=== PATIENT | female | born 1965 | race Hispanic/Latino ===

== ENCOUNTER 2018-06-22 06:32 | Observation (INO) | payer OTHER ==
[2018-06-22] MEDS ORDERED: Famotidine/PF 20 mg/2ml Vial ONE (07:41)
[2018-06-22] MEDS ORDERED: Ondansetron PF 4 MG/2 ML Vial ONE ×2 (07:41→21:18)
[2018-06-22] MEDS ORDERED: Scopolamine 1.5 mg/72 hour Patch ONE (07:41)
[2018-06-22] MEDS ORDERED: Levofloxacin 500 mg/D5W 100 ml Premix Bag ONE (07:55)
[2018-06-22] MEDS ORDERED: Clindamycin/D5W 900 mg/50 ml Premix Bag ONE (07:56)
[2018-06-22 08:00] LABS: #Basophils 0.1 thou/uL (0.0-0.2); #Eosinphils 0.1 thou/uL (0.0-0.7); #Lymphocytes 3.8 thou/uL (1.20-3.40); #Monocytes 0.7 thou/uL (0.11-0.59); #Neutrophils 5.4 thou/uL (1.40-6.50); %Basophils 0.7 % (0.0-1.0); %Eosinophils 1.5 % (0.0-10.0); %Lymphocytes 38.1 % (21.0-51.0); %Monocytes 6.5 % (0.0-10.0); %Neutrophils 53.3 % (42.0-75.0); Hemoglobin 13.9 g/dL (12.0-16.0); Mean Corpuscular HGB CONC 32.4 g/dL (32.0-36.0); Mean Corpuscular Hemoglobin 28.9 pg (27.0-31.0); Mean Corpuscular Volume 89.2 fL (78.0-98.0); Mean Platelet Volume 7.1 fL (7.4-10.4); Platelet Count 270 thou/uL (130-400); Red Blood Cell (RBC) Count 4.81 mill/uL (4.20-5.40); White Blood Cell (WBC) Count 10.1 thou/uL (4.8-10.8)
[2018-06-22 08:11] LABS: Anion Gap 11 mmol/L (10-20); BUN (Urea Nitrogen) 9 mg/dL (9.8-20.1); Calc. Creatinine Clearance 126 mL/min (70-130); Calcium 9.6 mg/dL (7.8-10.44); Carbon Dioxide 28 mmol/L (22-29); Chloride 105 mmol/L (98-107); Estimated GFR-MDRD 86; Glucose 95 mg/dL (70-105); Sodium 140 mmol/L (136-145)
[2018-06-22] MEDS ORDERED: Fentanyl 100 MCG/2 ML VIAL ONE ×4 (08:28→11:35)
[2018-06-22] MEDS ORDERED: Sodium Chloride 0.9% 10 ML ONE (09:11)
--- NOTE | 2018-06-22 10:08 | OP ---
DATE OF PROCEDURE: 06/22/2018 MACHINE STITCHER: Devon. PROCEDURE PERFORMED: Right L5-S1 microdiskectomy. DESCRIPTION OF PROCEDURE: The patient was brought to the operating room and intubated. She was rolled in a prone position on gel-filled chest rolls. An incision was made exposing L5 and S1 on the right, and the level was confirmed by x-ray. We performed a right L5-S1 hemilaminectomy, removed the ligament, identified the right S1 nerve root and beneath that was a bulging disk fragment. This was partially calcified and ultimately removed in multiple fragments. A complete decompression of right S1 was achieved. The wound was then extensively irrigated and maximum hemostasis was secured. Vancomycin powder was applied and the wound was closed in anatomic layers. Job ID: [id number]
[2018-06-22] MEDS ORDERED: diphenhydrAMINE 25 MG CAP PO PRN (10:57)
[2018-06-22] MEDS ORDERED: Milk Of Magnesia 30 ML UDCUP PO PRN (10:57)
[2018-06-22] MEDS ORDERED: Morphine 4 MG/ML VIAL SLOW IVP PRN ×2 (10:57→11:04)
[2018-06-22] MEDS ORDERED: diphenhydrAMINE 50 MG/ML VIAL IVP PRN (10:57)
[2018-06-22] MEDS ORDERED: tiZANidine HCl 4 MG TAB PO PRN (10:57)
[2018-06-22] MEDS ORDERED: Promethazine HCl 12.5 MG SUPP PR PRN (10:57)
[2018-06-22] MEDS ORDERED: Mag-Al 1200 mg/1200 mg/30 ML UDCUP PO PRN (10:57)
[2018-06-22] MEDS ORDERED: traMADol HCl 50 MG TAB PO PRN ×2 (10:57)
[2018-06-22] MEDS ORDERED: Promethazine HCl 25 MG/ML VIAL IM PRN (10:57)
[2018-06-22] MEDS ORDERED: Promethazine 25 MG TAB PO PRN (10:57)
[2018-06-22] MEDS ORDERED: HYDROcodone/Acetaminophen 10/325 mg Tablet PO PRN (10:57)
[2018-06-22] MEDS ORDERED: Ondansetron PF 4 MG/2 ML Vial IM PRN (10:58)
[2018-06-22] MEDS ORDERED: Ondansetron HCl/PF 4 MG/2 ML Vial IVP PRN (11:04)
[2018-06-22] MEDS ORDERED: Promethazine HCl 25 MG/ML VIAL IM/IV PRN (11:04)
[2018-06-22] MEDS ORDERED: Morphine Sulfate 2 MG/ML SYRINGE SLOW IVP PRN (11:04)
[2018-06-22] MEDS ORDERED: Morphine 4 MG/ML VIAL ONE (13:50)
[2018-06-22] MEDS ORDERED: Cyclobenzaprine 10 MG TAB PO PRN (16:59)
[2018-06-22] MEDS: Sodium Chloride 0.9% 1,000 ML IV SCH (17:10)
[2018-06-22 17:28] VITALS: BMI 35.2
--- NOTE | 2018-06-22 17:57 | EKG ---
Test Reason : PREOP Blood Pressure : / mmHG Vent. Rate : 093 BPM Atrial Rate : 093 BPM P-R Int : 120 ms QRS Dur : 080 ms QT Int : 366 ms P-R-T Axes : 067 059 027 degrees QTc Int : 455 ms Normal sinus rhythm Normal ECG No previous ECGs available Confirmed by LICO PALOMINO ([id number]) on 06/22/2018 5:57:39 PM Referred By: EULALIO Confirmed By:LICO PALOMINO
[2018-06-22] MEDS: Clindamycin/D5W 900 MG in Premix Bag 1 BAG IVPB SCH (18:16)
[2018-06-22] MEDS: HYDROcodone/Acetaminophen 10/325 mg Tablet PO PRN (18:28)
[2018-06-22] MEDS: predniSONE 20 MG TAB PO SCH (20:01)
[2018-06-22] MEDS ORDERED: Hydrocortisone Sod Succ/PF 100 mg/2 ml Vial ONE (21:18)
[2018-06-22] MEDS ORDERED: Lidocaine 1% PF 5 ML VIAL ONE (21:18)
[2018-06-22] MEDS ORDERED: PHENYLEPHRINE-NS 100 MCG/ML 10 ML SYRINGE ONE (21:18)
[2018-06-22] MEDS ORDERED: Dexamethasone 20 MG/5 ML VIAL ONE (21:18)
[2018-06-22] MEDS ORDERED: Ketorolac Tromethamine 30 MG/ML VIAL ONE (21:18)
[2018-06-22] MEDS ORDERED: Metoclopramide HCl 10 MG/2 ML VIAL ONE (21:18)
[2018-06-22] MEDS ORDERED: PROPOFOL 200 MG/20 ML VIAL ONE (21:18)
[2018-06-22] MEDS ORDERED: Succinylcholine Chloride 20 MG/ML 10 ml SYRINGE FS ONE (21:18)
[2018-06-22] MEDS ORDERED: ePHEDrine/0.9% NaCl/PF SYRINGE 50 mg/10 ml ONE (21:18)
[2018-06-23] MEDS: Clindamycin/D5W 900 MG in Premix Bag 1 BAG IVPB SCH (00:03)
[2018-06-23] MEDS: Sodium Chloride 0.9% 1,000 ML IV SCH (02:02)
[2018-06-23 08:05] VITALS: BP 120/76; TEMP 97.9
[2018-06-23] MEDS: predniSONE 20 MG TAB PO SCH (08:35)
[2018-06-23] MEDS: HYDROcodone/Acetaminophen 10/325 mg Tablet PO PRN (08:37)
--- NOTE | 2018-06-23 09:56 | DIS ---
DATE OF ADMISSION: 06/22/2018 DATE OF DISCHARGE: 06/23/2018 HISTORY: Ms. Lai is a 52-year-old woman, who was admitted to [facility] on June 22, 2018, by Dr. Bartolome Priest. ADMISSION DIAGNOSIS: Status post lumbar diskectomy. DISCHARGE DIAGNOSIS: Status post lumbar diskectomy. HOSPITAL COURSE: Ms. Lai was admitted to the surgical floor in [place] following surgery for overnight observation. No consultations were ordered. She ultimately tolerated the procedure well and had minimal pain complaints. She mobilized well early on, and on the morning of June 23, was ready for discharge. She was subsequently discharged home with outpatient followup planned in 4 weeks. Job ID: [id number]
== END 2018-06-23 10:24 | disposition home or self-care (01) ==
LOC: SDC 06:32 → SURG A 16:47
PROVIDERS: ADMIT Neurological Surgery; ATTEND Neurological Surgery
PROC: 0SB20ZZ Excision of Lumbar Vertebral Disc, Open Approach (ICD-10-PCS; principal; 2018-06-22)
DX: M51.17 Intervertebral disc disorders with radiculopathy, lumbosacral region (principal); Z88.0 Allergy status to penicillin; Z88.5 Allergy status to narcotic agent
CPT/HCPCS: 36415; 76001; 80048; 85025; 93005; 93010; 96374; 96376; G0378; J1100; J1720; J1885; J1956; J2001; J2270; J2405; J2704; J2765; J3010; J3370; J3490; J7506; S0028

== ENCOUNTER 2018-08-17 07:48 | Outpatient (CLI) | payer OTHER ==
--- NOTE | 2018-08-17 09:09 | MRI ---
MRI LUMBAR SPINE WITHOUT CONTRAST: HISTORY: Lumbar radiculopathy. Right leg pain, increasing. COMPARISON: None. TECHNIQUE: MRI lumbar spine is performed without intravenous Gadolinium administration. Multisequential, multip lanar imaging is performed. FINDINGS: Appropriate T1 marrow signal intensity of the lumbar vertebrae. Lumbar spine vertebral body height i s maintained. There is no fracture. Straightening of normal lumbar lordosis. No significant STIR h yperintensity to suggest edema or ligamentous injury. Symmetric signal intensity of the psoas muscles. Appropriate signal intensity of the visualized dodie d organs. Conus medullaris terminates at the mid L1 level. T12-L1: Adequate disk hydration. No significant central canal stenosis. Foramen are patent. L1-L2: Adequate disk hydration. No significant central canal stenosis. Foramen are patent. L2-L3: Adequate disk hydration. A small amount of disk material encroaches upon the right subarticu lar zone and abuts the traversing right L3 nerve root. There is no significant central canal stenosi s. Neural foramina are patent. L3-L4: Adequate disk hydration. No significant central canal stenosis. Foramen are patent. L4-L5: Desiccation with mild loss of disk space height. There is a central/right subarticular disk protrusion with inferior and slightly superior disk extrusion. The disk material obscures the camacho sing right L5 nerve root. Overall, there is mild central canal stenosis. Minimal encroachment upon the left subarticular zone without significant mass effect or obscuration of the traversing left L5 n erve root. Mild right foraminal narrowing. The left foramen is patent. L5-S1: Moderate loss of disk space height. Generalized disk bulge without significant central canal stenosis. Mild to moderate bilateral foraminal narrowing. IMPRESSION: Degenerative disk disease at L2-L3 and L4-L5 as described above. There is some mass effect without o bscuration of the traversing right L3 nerve root. There is mass effect with obscuration of the trave rsing right L5 nerve root. POS: [facility]
== END 2018-08-17 07:49 | disposition home or self-care (01) ==
LOC: TBSIIMAG 07:48
PROVIDERS: ATTEND Neurological Surgery
DX: M51.16 Intervertebral disc disorders with radiculopathy, lumbar region (principal)
CPT/HCPCS: 72148

== ENCOUNTER 2018-08-21 19:39 | Emergency (ER) | payer OTHER ==
[2018-08-21] MEDS ORDERED: Ketorolac Tromethamine 30 MG/ML VIAL ONE (20:04)
[2018-08-21 20:22] LABS: #Basophils 0.1 thou/uL (0.0-0.2); #Eosinphils 0.2 thou/uL (0.0-0.7); #Lymphocytes 4.8 thou/uL (1.20-3.40); #Monocytes 0.9 thou/uL (0.11-0.59); %Basophils 0.6 % (0.0-1.0); %Eosinophils 1.4 % (0.0-10.0); %Lymphocytes 34.7 % (21.0-51.0); %Monocytes 6.1 % (0.0-10.0); %Neutrophils 57.2 % (42.0-75.0); Hemoglobin 13.8 g/dL (12.0-16.0); Mean Corpuscular HGB CONC 32.7 g/dL (32.0-36.0); Mean Corpuscular Hemoglobin 29.5 pg (27.0-31.0); Mean Corpuscular Volume 90.4 fL (78.0-98.0); Mean Platelet Volume 7.3 fL (7.4-10.4); Platelet Count 244 thou/uL (130-400); RBC Distribution Width 12.9 % (11.5-14.5); Red Blood Cell (RBC) Count 4.69 mill/uL (4.20-5.40); White Blood Cell (WBC) Count 13.9 thou/uL (4.8-10.8)
[2018-08-21 20:30] LABS: Bilirubin Negative (Negative); Blood, Urine Large (Negative); Clarity CLEAR (Clear); Glucose, Urine (Dipstick) Negative (Negative); Leukocyte Negative (Negative); Nitrite Negative (Negative); Protein, Urine (Dipstick) Negative (Neg-Trace); Specific Gravity, Urine 1.015 (1.002-1.036); pH, Urine 6.5 (5.0-9.0)
[2018-08-21 20:31] LABS: Bacteria/HPF None Seen HPF (None Seen); Hyaline Casts/LPF 0-3 HYALINE CAST LPF (0-3 Hyaline); RBC/HPF GREATER THAN 50-TNTC HPF (0-3); WBC/HPF 0-3 HPF (0-3)
[2018-08-21 20:44] LABS: ALT (SGPT) 45 U/L (8-55); AST (SGOT) 46 U/L (5-34); Albumin 4.2 g/dL (3.5-5.0); Alkaline Phosphatase 102 U/L (40-150); Anion Gap 15 mmol/L (10-20); BUN (Urea Nitrogen) 7 mg/dL (9.8-20.1); Bilirubin, Total 0.3 mg/dL (0.2-1.2); Calc. Creatinine Clearance 0 mL/min (70-130); Calcium 9.8 mg/dL (7.8-10.44); Carbon Dioxide 22 mmol/L (22-29); Chloride 106 mmol/L (98-107); Estimated GFR-MDRD 78; Globulin 3.3 g/dL (2.4-3.5); Glucose 114 mg/dL (70-105); Lipase 30 U/L (8-78); Potassium 3.8 mmol/L (3.5-5.1); Protein, Total 7.5 g/dL (6.0-8.3); Sodium 139 mmol/L (136-145)
[2018-08-21] MEDS ORDERED: Morphine 4 MG/ML VIAL ONE (20:48)
--- NOTE | 2018-08-21 20:58 | CT ---
CT ABDOMEN AND PELVIS WITHOUT CONTRAST: HISTORY: Left flank pain. Kidney stones. FINDINGS: Absence of oral and IV contrast reduces the sensitivity of the exam, particularly for evaluation of s olid organs involved. The lung bases are clear. The patient is post cholecystectomy. No free air or free fluid is seen in the abdomen or pelvis. There is mild colonic diverticulosis. A normal appearing appendix is seen. There is no evidence of aneurysmal dilatation of the abdominal aorta. There are degenerative change s in the lower lumbar spine. Numerous calculi are seen in the kidneys on either side. There is a 3 mm calculus at the left UPJ wi th mild left-sided hydronephrosis. No calculi are seen in the right ureter or in the urinary bladder . No right-sided hydroureteronephrosis is seen. IMPRESSION: 1. A 3 mm left ureteropelvic junction calculus with mild ipsilateral hydronephrosis. 2. Bilateral renal calculi. 3. Mild colonic diverticulosis. POS: [facility]
== END 2018-08-21 21:30 | disposition home or self-care (01) ==
LOC: ERS 19:39
DX: N13.2 Hydronephrosis with renal and ureteral calculous obstruction (principal); Z87.442 Personal history of urinary calculi; Z79.891 Long term (current) use of opiate analgesic; Z79.899 Other long term (current) drug therapy
CPT/HCPCS: 74176; 80053; 81003; 81015; 83690; 85025; 96361; 96374; 96375; J1885; J2270

== ENCOUNTER 2018-08-22 09:22 | Observation (INO) | payer OTHER ==
[2018-08-19 10:23] VITALS: BMI 31.6
[2018-08-22] MEDS ORDERED: Scopolamine 1.5 mg/72 hour Patch ONE (10:06)
[2018-08-22] MEDS ORDERED: Fentanyl 250 MCG/5 ML VIAL ONE (11:52)
[2018-08-22] MEDS ORDERED: Midazolam HCl 2 mg/2 ml Vial ONE (12:29)
[2018-08-22] MEDS ORDERED: Clindamycin/D5W 900 mg/50 ml Premix Bag ONE (12:36)
[2018-08-22] MEDS ORDERED: Levofloxacin 500 mg/D5W 100 ml Premix Bag ONE (12:36)
[2018-08-22] MEDS ORDERED: Sodium Chloride 0.9% 0 ML ONE (13:12)
[2018-08-22] MEDS ORDERED: Fentanyl 100 MCG/2 ML VIAL ONE ×3 (13:51→14:44)
[2018-08-22] MEDS ORDERED: Morphine 4 MG/ML VIAL SLOW IVP PRN ×2 (14:38→15:50)
[2018-08-22] MEDS ORDERED: diphenhydrAMINE 25 MG CAP PO PRN (14:38)
[2018-08-22] MEDS ORDERED: traMADol HCl 50 MG TAB PO PRN ×2 (14:38)
[2018-08-22] MEDS ORDERED: Promethazine HCl 25 MG/ML VIAL IM PRN (14:38)
[2018-08-22] MEDS ORDERED: Promethazine 25 MG TAB PO PRN (14:38)
[2018-08-22] MEDS ORDERED: tiZANidine HCl 4 MG TAB PO PRN (14:38)
[2018-08-22] MEDS ORDERED: Milk Of Magnesia 30 ML UDCUP PO PRN (14:38)
[2018-08-22] MEDS ORDERED: Mag-Al 1200 mg/1200 mg/30 ML UDCUP PO PRN (14:38)
[2018-08-22] MEDS ORDERED: Promethazine HCl 12.5 MG SUPP PR PRN (14:38)
[2018-08-22] MEDS ORDERED: Sodium Chloride 0.9% 1,000 ML IV SCH (14:38)
[2018-08-22] MEDS ORDERED: HYDROcodone/Acetaminophen 10/325 mg Tablet PO PRN ×2 (14:38)
[2018-08-22] MEDS ORDERED: diphenhydrAMINE 50 MG/ML VIAL IVP PRN (14:38)
[2018-08-22] MEDS ORDERED: Morphine 4 MG/ML VIAL ONE ×2 (14:44→15:26)
[2018-08-22] MEDS ORDERED: PHENYLEPHRINE-NS 100 MCG/ML 10 ML SYRINGE ONE (15:01)
[2018-08-22] MEDS ORDERED: Lidocaine 1% PF 5 ML VIAL ONE (15:01)
[2018-08-22] MEDS ORDERED: Rocuronium Bromide 10 MG/ML (10ML VIAL) ONE (15:01)
[2018-08-22] MEDS ORDERED: Ondansetron PF 4 MG/2 ML Vial ONE (15:01)
[2018-08-22] MEDS ORDERED: Ketorolac Tromethamine 30 MG/ML VIAL ONE (15:01)
[2018-08-22] MEDS ORDERED: Glycopyrrolate 0.2 MG/ML 5 ML SYRINGE ONE (15:01)
[2018-08-22] MEDS ORDERED: PROPOFOL 200 MG/20 ML VIAL ONE (15:01)
[2018-08-22] MEDS ORDERED: Dexamethasone 20 MG/5 ML VIAL ONE (15:01)
--- NOTE | 2018-08-22 15:47 | OP ---
DATE OF PROCEDURE: 08/22/2018 MANAGER CARDIAC CATH: Holly Osorio PA-C. PROCEDURES PERFORMED: Right L4-L5 microdiskectomy. DESCRIPTION OF PROCEDURE: The patient was brought to the operating room and intubated. She was rolled in a prone position on gel-filled chest rolls. An incision was made exposing the right L4-L5 level was confirmed by x-ray. We performed a right L4-L5 hemilaminectomy, identified the ligament and removed it. The right L5 nerve root was identified but it was extruded with disk herniation. This was removed and a complete decompression of right L5 was achieved. The wound was then extensively irrigated and maximum hemostasis was secured. Vancomycin powder was applied and the wound was closed in anatomic layers. Job ID: [id number]
[2018-08-22] MEDS ORDERED: Promethazine HCl 25 MG/ML VIAL IM/IV PRN (15:50)
[2018-08-22] MEDS ORDERED: Ondansetron HCl/PF 4 MG/2 ML Vial IVP PRN (15:50)
[2018-08-22] MEDS ORDERED: Non-Formulary Medication 1 EACH PO PRN (15:50)
[2018-08-22] MEDS ORDERED: Morphine Sulfate 2 MG/ML SYRINGE SLOW IVP PRN (15:50)
[2018-08-22] MEDS ORDERED: Morphine 2 MG/ML SYRINGE ONE (17:32)
[2018-08-22] MEDS ORDERED: Ketorolac Tromethamine 30 MG/ML VIAL IVP PRN (19:24)
[2018-08-22] MEDS: Clindamycin/D5W 900 MG in Premix Bag 1 BAG IVPB SCH (21:05)
[2018-08-22] MEDS ORDERED: Ondansetron PF 4 MG/2 ML Vial IVP PRN (21:15)
[2018-08-23] MEDS: Clindamycin/D5W 900 MG in Premix Bag 1 BAG IVPB SCH (06:00)
--- NOTE | 2018-08-23 07:07 | DIS ---
DATE OF ADMISSION: 08/22/2018 DATE OF DISCHARGE: 08/23/2018 The patient is a 52-year-old female status post right L4-L5 microdiskectomy. Following the surgery, she was transitioned to the [facility] floor where her pain was well controlled with p.o. medications, she was tolerating a regular diet, and voiding appropriately. Her incision did not have any drainage issues. She is awake, alert, comfortable. She has free active range of motion of all extremities, 5/5 strength throughout. No focal motor weakness. No reflex asymmetry. Incision is dry and intact. We will plan to dismiss the patient home. I have discussed home care and precautions. We will follow up in three weeks in the office. Job ID: [id number]
[2018-08-23 08:02] VITALS: BP 107/67; TEMP 98
== END 2018-08-23 09:30 | disposition home or self-care (01) ==
LOC: SDC 09:22 → 3SE 18:24 → SDC 18:31 → 3SE 18:31
PROVIDERS: ADMIT Neurological Surgery; ATTEND Neurological Surgery
PROC: 01NB0ZZ Release Lumbar Nerve, Open Approach (ICD-10-PCS; principal; 2018-08-22)
DX: M54.16 Radiculopathy, lumbar region (principal); Z88.0 Allergy status to penicillin; Z88.5 Allergy status to narcotic agent
CPT/HCPCS: 76000; 96361; 96365; 96375; 96376; G0378; J1100; J1885; J1956; J2001; J2250; J2270; J2405; J2704; J3010; J3370; J3490

== ENCOUNTER 2019-05-04 10:05 | Outpatient (CLI) | payer OTHER ==
--- NOTE | 2019-05-04 13:21 | MRI ---
MRI LUMBAR SPINE WITH AND WITHOUT CONTRAST: INDICATION: Lumbar radiculopathy. History of prior lumbar surgery. COMPARISON: Comparison is made to MRI lumbar spine dated 08/17/2018. FINDINGS: The lumbar vertebrae maintain height and alignment. Vertebral body signal is normal. There are dege nerative disk changes at L4-5 and L5-S1 with loss of disk space. At L1-2, no significant abnormality. At L2-3, there is evidence of a small asymmetric protrusion on the right which indents the anterior t hecal sac on the right and exhibits mild foraminal extension. This does appear to displace the trave rsing right L3 nerve root and was noted previously. At L3-4, no significant disk bulge or protrusion. Mild facet hypertrophy. No central canal or amado inal stenosis. At L4-5, there is an annular fissure with a disk protrusion centrally and to the right which flattens the anterior thecal sac to the right and displaces the traversing right L5 nerve root. There is fac et hypertrophy with moderate central canal stenosis. The findings at this level have not significant ly changed. At L5-S1, broad-based disk bulge abuts the anterior thecal sac. Facet hypertrophy. Mild central can al stenosis. No significant foraminal stenosis at this level. IMPRESSION: 1. Disk protrusion to the right at L4-5 as described above. 2. Broad-based disk bulge at L5-S1 again noted. 3. Asymmetric bulge/protrusion to the right at L2-3 again noted. Findings do not appear significantly changed from 08/17/2018. POS: [facility]
== END 2019-05-04 10:06 | disposition home or self-care (01) ==
LOC: TBSIIMAG 10:05
PROVIDERS: ATTEND Neurological Surgery
DX: M51.16 Intervertebral disc disorders with radiculopathy, lumbar region (principal)
CPT/HCPCS: 72158

== ENCOUNTER 2020-12-11 13:36 | Outpatient (CLI) | payer OTHER | END 2020-12-11 13:37 | disposition home or self-care (01) | LOC: TBSIIMAG 13:36 | PROVIDERS: ATTEND Neurological Surgery | DX: M51.16 Intervertebral disc disorders with radiculopathy, lumbar region (principal) | CPT/HCPCS: 72158 ==